=== PATIENT | female | born 1985 | race Caucasian/White ===

== ENCOUNTER → 2018-07-07 13:41 | Outpatient (CLI) | payer SELFPAY ==
[2018-07-07 17:18] LABS: Chlamydia Trachomatis by PCR Negative (Negative); Neisserai gonorrhoeae by PCR Negative (Negative); Probe Check PASS; Sample Adequacy Control PASS; Specimen Processing Control PASS
[2018-07-12 13:22] LABS: HPV Reflexed? NOT INDICATED
== END ==
PROVIDERS: Visit Provider Obstetrics & Gynecology
DX: Z12.4 Encounter for screening for malignant neoplasm of cervix (principal); Z11.3 Encounter for screening for infections with a predominantly sexual mode of transmission
CPT/HCPCS: 87491; 87591; 88175; G0145

== ENCOUNTER → 2018-07-21 10:09 | Outpatient (CLI) | payer SELFPAY ==
[2018-07-21 10:34] LABS: Absolute Lymphocyte Count 2.02 X10^3/ul (0.83-4.51); Absolute Neutrophil Count 8.7 X10^3/uL (2.0-7.7); Basophil# 0.01 X10^3/uL; Basophil% 0.1 % (0-1); Eosinophil# 0.12 X10^3/uL; Eosinophils% 1.1 % (0-5); Hematocrit 40.8 % (37-47); Hemoglobin 13.3 g/dl (12.0-15.0); Lymphocyte # 2.02 X10^3/ul (4.0); Lymphocyte % 17.9 % (19-41); Mean Corp Hgb Conc 32.6 g/gl (32-36); Mean Corpuscular Hgb 29.7 pg (27.0-32.0); Mean Corpuscular Volume 91.1 fL (81-99); Mean Platelet Vol. 10.1 fl (6.2-12.0); Monocyte# 0.38 X10^3/uL; Monocyte% 3.4 % (0-10); Neutrophil # 8.73 X10^3/uL (2.7-7.7); Neutrophil % 77.2 % (47-70); Platelet Count 270 K/mm3 (150-450); RBC Distribution Width CV 12.9 % (11.6-14.6); RBC Distribution Width SD 42.7 fl (35.1-43.9); Red Blood Count 4.48 M/mm3 (4.2-5.4); White Blood Count 11.3 K/mm3 (4.4-11.0)
[2018-07-21 10:36] LABS: POSITIVE COUNT NO; POSITIVE DIFFERENTIAL NO; POSITIVE MORPHOLOGY NO
[2018-07-21 10:48] LABS: Color, Urine Yellow (Yellow); Glucose, Dipstick Normal (Normal); Ketone-Dipstick 5 mg/dl (Negative); Leukocyte Esterase-Dipstick 25 /ul (Negative); Nitrite-Dipstick Negative (Negative); Occult Blood-Urine 10 /ul (Negative); Protein-Dipstick 30 mg/dl (Negative); Specific Gravity, Urine 1.025 (1.002-1.030); Urine Clarity Cloudy (Clear); Urine Urobilinogen 1 mg/dl (Normal)
[2018-07-21 10:49] LABS: Urine Bilirubin Dipstick 1 mg/dL (Negative)
[2018-07-21 10:55] LABS: COTININE Drug Screen Negative (<200 ng/mL)
[2018-07-21 11:07] LABS: Amphetamine Urine VISTA NEGATIVE (<1000 ng/mL); Barbiturate Urine VISTA NEGATIVE (< 200 ng/mL); Benzodiazepine Urine VISTA NEGATIVE (< 200 ng/mL); Cocaine Urine VISTA NEGATIVE (< 300 ng/mL); Ecstacy Urine VISTA NEGATIVE (< 500 ng/mL); Methadone Urine VISTA NEGATIVE (< 300 ng/mL); PCP Urine VISTA NEGATIVE (< 25 ng/mL); THC Urine VISTA NEGATIVE (< 50 ng/mL); Vista UDS pH Range 5
[2018-07-21 11:28] LABS: Thyroid Stim Hormone (TSH) 1.06 uIU/mL (0.358-3.74)
[2018-07-21 12:11] LABS: HIV - WCH Non-Reactive (Nonreactive); Rubella IgG 5.3 IU/mL
[2018-07-22 10:29] LABS: HEPATITIS B SURFACE AG Negative (Negative); Hep C Antibodies <0.1 s/co ratio (0.0-0.9)
[2018-07-23 05:27] LABS: Prenatal RPR NONREACTIVE (NONREACTIVE)
== END ==
PROVIDERS: Visit Provider Obstetrics & Gynecology
DX: Z34.81 Encounter for supervision of other normal pregnancy, first trimester (principal)
CPT/HCPCS: 36415; 80307; 81002; 84443; 85025; 86703; 86762; 86803; 87340

== ENCOUNTER → 2018-12-07 08:41 | Outpatient (CLI) | payer SELFPAY ==
[2018-12-07 10:46] LABS: Hematocrit 37.2 % (37-47); Hemoglobin 12.1 g/dl (12.0-15.0); Mean Corp Hgb Conc 32.5 g/gl (32-36); Mean Corpuscular Hgb 31.6 pg (27.0-32.0); Mean Corpuscular Volume 97.1 fL (81-99); Mean Platelet Vol. 10.1 fl (6.2-12.0); Platelet Count 255 K/mm3 (150-450); RBC Distribution Width CV 12.6 % (11.6-14.6); RBC Distribution Width SD 43.3 fl (35.1-43.9); Red Blood Count 3.83 M/mm3 (4.2-5.4); White Blood Count 12.9 K/mm3 (4.4-11.0)
[2018-12-07 10:48] LABS: Scan Indicated on CBC? Y/N NO
[2018-12-07 10:53] LABS: Glucose Challenge Gest 1H 50g 101 mg/dL (70-140)
== END ==
PROVIDERS: Visit Provider Obstetrics & Gynecology
DX: Z34.83 Encounter for supervision of other normal pregnancy, third trimester (principal)
CPT/HCPCS: 36415; 82950; 85027

== ENCOUNTER → 2019-02-01 12:05 | Outpatient (CLI) | payer SELFPAY | PROVIDERS: Visit Provider Obstetrics & Gynecology | DX: Z36.85 Encounter for antenatal screening for Streptococcus B (principal) | CPT/HCPCS: 87081 ==

== ENCOUNTER 2019-03-08 19:00 | Inpatient (IN) | payer SELFPAY ==
[2019-03-08] MEDS: Lactated Ringers 1,000 ML 50 ML IV (19:40)
[2019-03-08 19:57] LABS: Absolute Lymphocyte Count 2.12 X10^3/ul (0.83-4.51); Absolute Neutrophil Count 10.8 X10^3/uL (2.0-7.7); Basophil# 0.01 X10^3/uL; Basophil% 0.1 % (0-1); Eosinophil# 0.07 X10^3/uL; Eosinophils% 0.5 % (0-5); Hematocrit 35.2 % (37-47); Hemoglobin 11.8 g/dl (12.0-15.0); Lymphocyte # 2.12 X10^3/ul (4.0); Lymphocyte % 15.7 % (19-41); Mean Corp Hgb Conc 33.5 g/gl (32-36); Mean Corpuscular Hgb 30.5 pg (27.0-32.0); Mean Platelet Vol. 10.5 fl (6.2-12.0); Monocyte# 0.46 X10^3/uL; Monocyte% 3.4 % (0-10); Neutrophil # 10.82 X10^3/uL (2.7-7.7); Platelet Count 224 K/mm3 (150-450); RBC Distribution Width CV 13.2 % (11.6-14.6); Red Blood Count 3.87 M/mm3 (4.2-5.4); White Blood Count 13.5 K/mm3 (4.4-11.0)
[2019-03-08 19:59] LABS: POSITIVE COUNT NO; POSITIVE DIFFERENTIAL NO; POSITIVE MORPHOLOGY NO
--- NOTE | 2019-03-08 20:11 | PCM.HPOB.BLA ---
History and Physical Date of Admission: 03/08/19 OB HISTORY AND PHYSICAL EXAMINATION History of this : 33 yo female Ab0 with EDC 02/28/2019 by 8 weeks 2 days Ultrasound, presents to Labor and Delivery for 41 1/7 wk EGA postdates induction. care remarkable for - A positive GBS NEGATIVE. 1.) Wants MSAFP drawn, declines CF testing 2.) has two older children (early 20's) 3.) Rubella equivocal. Vaccinate pp Pertinent Past Medical History: None. Allergies: No Known Allergies Medications: During - Valtrex 500 mg tablet; Vitamin tablet; promethazine 25 mg tablet Review of Systems: Non-contributory PHYSICAL EXAMINATION General Appearence: 33 yo female in no acute distress Vital Signs: AF, VSS Heart: RRR without rubs or gallops Lungs: CTA x 2 Breasts: deferred Abdomen: gravid Pelvis: Cervix: CLOSED, anterior, soft unable to place de luna bulb Presentation: cephalic Station: Fetus: Size: AGA Movement: present Heart: 120-130s avg variability Accels Category I tracing UCs noted, irregular and not painful Impression /Plan: Intrauterine . Postdates induction of labor. Unfavorable cervix. Cytotec po and De Luna bulb planned. UNABLE TO PLACE DE LUNA BULB. Plan for cytotec PO overnight with last dose by 5 am. AROM, pitocin prn tomorrow. Admit for induction. Watch progress and tolerance of labor. See Progress Notes for Changes: Physician's Signature: Nikhil Yun Date: 03/08/192014
[2019-03-08 20:13] VITALS: BMI 41.3
[2019-03-08] MEDS: 0.9% Normal Saline 100 ML IV.SOLN. INTRA-UTER (20:30)
[2019-03-08] MEDS: Nalbuphine 10 MG/ML Ampul IV (23:55)
[2019-03-08] MEDS: 0.9% Saline Lock 10 ML Syringe IV (23:56)
[2019-03-09] VITALS (8 sets, daily range): BP systolic 105–138; BP diastolic 57–74; PULSE 102–114; RESP 12–18; TEMP 36.8–36.9; O2SAT 98–100
[2019-03-09] MEDS: Nalbuphine 10 MG/ML Ampul IV ×2 (03:11→06:34)
[2019-03-09] MEDS: 0.9% Saline Lock 10 ML Syringe IV ×2 (03:13→06:35)
--- NOTE | 2019-03-09 07:14 | PCM.PN.BLA ---
Progress Note LABOR PROGRESS NOTE. 41 2/7 wk postdates induction. Cytotec overnight Feeling more pain. S/P nubain dose times one which took the edge off. AVSS EFM: 120s with avg variability. Accels. UCx q 2-3 min CX: does not admit FT through. Lang bulb planned. VERY NARROW ARCH/PELVIS A/P: 41 2/7 wk induction of labor. Lang bulb planned. Pitocin to start 4 hr after last Cytotec dose. Watch progress. VERY NARROW pelvis. ? adequacy. Continue induction of labor for now.
--- NOTE | 2019-03-09 07:25 | PCM.PN.BLA ---
Progress Note LABOR PROGRESS NOTE Painful with attempted insertion of De Luna unable to insert de luna. Trial with speculum and trial with exam guided insertion. De Luna in correct place, bult inflated and bulb immediately noted in vagina. AROM in process of trial of de luna bulb insertion . Mod amt of clear fluid noted. A/P: 41 10/31 wk induction Cytotec with very unfavorable cervix. NARROW Pelvis. States her mother delivered x four. continue induction Pitocin to start. consider epidural. S/P Nubain one dose already.
--- NOTE | 2019-03-09 09:14 | PN.OBGYN_ITS ---
Subjective: Uncomfortable with contractions. Objective: Afeb VSS FHR tracing Cat 1. - Physical Exam General: Alert, Oriented x3, Cooperative Abdomen: Soft, Non Tender, Non-Distended, Gravid, Appropriate for Gestational Age Extremities: No edema Skin: No rashes Neurological: Neuro grossly intact Psych/Mental Status: Normal Affect Comment: ZINA /-3 Weight: 233 lb 0.458 oz Body Mass Index (BMI) 41.3 Intake and Output for Last 24 Hours 03/07/19 03/08/19 03/09/19 23:59 23:59 23:59 Intake Total 500 / 500 500 / 500 Output Total 500 / 500 300 / 300 Balance 0 / 0 200 / 200 Laboratory Tests Past 24 Hrs 03/08/19 03/08/19 19:40 19:40 WBC 13.5 H RBC 3.87 L Hgb 11.8 L Hct 35.2 L MCV 91.0 MCH 30.5 MCHC 33.5 RDW 13.2 RDW Differential 43.0 Plt Count 224 MPV 10.5 Immature Gran % (Auto) 0.300 Neut % (Auto) 80.0 H Lymph % (Auto) 15.7 L [place] % (Auto) 3.4 Eos % (Auto) 0.5 Baso % (Auto) 0.1 Absolute Neuts (auto) 10.8 H Absolute Lymphs (auto) 2.12 Total Counted Not Reportable Blood Type A POSITIVE Antibody Screen NEGATIVE Medical Necessity - Tobacco Use Smoking Status: Never smoker Assessment/Plan A 24 gambian de luna catheter was placed through the cervix into the cavity and the balloon filled with saline to 30cc. Plans to get epidural at this time. Will start pitocin then.
[2019-03-09] MEDS: Lactated Ringers 1,000 ML 50 ML IV ×3 (09:30→18:01)
[2019-03-09] MEDS: fentaNYL-bupivacaine (epidural) 100 ML BAG EPIDURAL ×3 (10:27→20:08)
[2019-03-09] MEDS: Ondansetron 4 MG/2 ML Vial IV ×2 (10:49→16:23)
[2019-03-09] MEDS: Oxytocin 30 units/NS 500 ml 30 UNITS/500 ML IV.SOLN IV (11:07)
--- NOTE | 2019-03-09 12:16 | PCM.PN.OB ---
Subjective: More comfortable with epidural in place Objective: Afeb VSS FHR tracing Cat 1 - Physical Exam General: Alert, Oriented x3, Cooperative, No apparent distress Cardiovascular: Regular rate, Regular Rhythm Abdomen: Soft, Non Tender, Non-Distended, Gravid, Appropriate for Gestational Age Extremities: No edema, No Calf Tenderness Skin: No rashes Neurological: Neuro grossly intact Psych/Mental Status: Normal Affect Comment: CE 4/50/-3 Weight: 233 lb 0.458 oz Body Mass Index (BMI) 41.3 Intake and Output for Last 24 Hours 03/07/19 03/08/19 03/09/19 23:59 23:59 23:59 Intake Total 500 / 500 2151 / 2151 Output Total 500 / 500 400 / 400 Balance 0 / 0 1751 / 1751 Laboratory Tests Past 24 Hrs 03/08/19 03/08/19 19:40 19:40 WBC 13.5 H RBC 3.87 L Hgb 11.8 L Hct 35.2 L MCV 91.0 MCH 30.5 MCHC 33.5 RDW 13.2 RDW Differential 43.0 Plt Count 224 MPV 10.5 Immature Gran % (Auto) 0.300 Neut % (Auto) 80.0 H Lymph % (Auto) 15.7 L [place] % (Auto) 3.4 Eos % (Auto) 0.5 Baso % (Auto) 0.1 Absolute Neuts (auto) 10.8 H Absolute Lymphs (auto) 2.12 Total Counted Not Reportable Blood Type A POSITIVE Antibody Screen NEGATIVE Medical Necessity - Tobacco Use Smoking Status: Never smoker Assessment/Plan Lang balloon spontaneously fell out. Cervix changed. Internal monitors placed. Deandre oneil.
[2019-03-09] MEDS: CHLORHEXIDINE GLUC 2% CLOTH 1 EACH TOWELETTE TOPICAL (20:20)
--- NOTE | 2019-03-09 20:30 | PCM.PN.OB ---
Subjective: Comfortable with epidural Objective: Afeb VSS. FHR tracing overall Cat 1 - Physical Exam General: Alert, Oriented x3, Cooperative, No apparent distress Abdomen: Soft, Non Tender, Non-Distended, Gravid, Appropriate for Gestational Age Extremities: No edema Skin: No rashes Neurological: Neuro grossly intact Psych/Mental Status: Normal Affect Comment: CE /-2 Weight: 233 lb 0.458 oz Body Mass Index (BMI) 41.3 Intake and Output for Last 24 Hours 03/07/19 03/08/19 03/09/19 23:59 23:59 23:59 Intake Total 500 / 500 4315 / 4315 Output Total 500 / 500 1750 / 1750 Balance 0 / 0 2565 / 2565 Laboratory Tests Past 24 Hrs 03/08/19 19:40 Blood Type A POSITIVE Antibody Screen NEGATIVE Medical Necessity - Tobacco Use Smoking Status: Never smoker Assessment/Plan Despite adequate contractions over at least the last 8 hours there has been no significant cervical change. Given lack of progress decision is made to deliver by section. Indications for delivery, procedures, risks were discussed. All questions answered.
--- NOTE | 2019-03-09 20:33 | PN.OBGYN_ITS ---
Subjective: Comfortable with epidural Objective: Afeb VSS. FHR tracing overall Cat 1 - Physical Exam General: Alert, Oriented x3, Cooperative, No apparent distress Abdomen: Soft, Non Tender, Non-Distended, Gravid, Appropriate for Gestational Age Extremities: No edema Skin: No rashes Neurological: Neuro grossly intact Psych/Mental Status: Normal Affect Comment: CE /-2 Weight: 233 lb 0.458 oz Body Mass Index (BMI) 41.3 Intake and Output for Last 24 Hours 03/07/19 03/08/19 03/09/19 23:59 23:59 23:59 Intake Total 500 / 500 4315 / 4315 Output Total 500 / 500 1750 / 1750 Balance 0 / 0 2565 / 2565 Laboratory Tests Past 24 Hrs 03/08/19 19:40 Blood Type A POSITIVE Antibody Screen NEGATIVE Medical Necessity - Tobacco Use Smoking Status: Never smoker Assessment/Plan Despite adequate contractions over at least the last 8 hours there has been no s ignificant cervical change. Given lack of progress decision is made to deliver by section. Indications for delivery, procedures, risks were discussed. All questions answered.
--- NOTE | 2019-03-09 20:40 | DCINST_ITS ---
Discharge Diet: No Restrictions Discharge Activity: Return to Normal Activity, May Not Drive, May not drive while taking narcotic pain medications., May Shower Return to work on:: 05/09/19 May shower in (days): 0 May resume sexual activity in: 6 weeks Call your doctor if your incision/area has: Sudden Increased Bleeding, Increased Pain/ Swelling, Increased Redness, Foul Smelling Discharge, Swelling at the incision site Call your doctor if you observe: Fever of 101 or Higher, Inability to urinate, Inability to have a bowel movement, Using more than one pad per hour, Shortness of breath, Chest pain, Calf discomfort, Uncontrolled pain Remove Dressing in (days):: 4 Cleanse incision/area with: Soap & Water Additional Instructions: If you experience any of the following, contact your healthcare provider. * Bleeding that soaks a pad every hour for 2 hours * Fever 100.4 or higher * Unrelieved incision or abdominal pain * Swelling, redness, discharge or bleeding from your incision or episiotomy site * Your incision begins to separate * Problems urinating (including inability to urinate or burning while urina ting). * Visual changes * Severe headache * Flu-like symptoms * Pain or redness in one of both of your breasts * Pain, warmth, tenderness or swelling in your legs, especially the calf area * Frequent nausea and vomiting * Symptoms of depression or anxiety If you experience any of the following, call 911 or go to the nearest Emergency Room. * Chest pain * Problems breathing * Seizure activity * Partial or complete paralysis of a body part, slurred speech, weakness or drooping of the face, or a sudden inability to walk or hold your balance Allergies/Adverse Reactions: Allergies No Known Allergies Allergy (Verified 03/08/19 20:11) Medications to take at Discharge Docusate Sodium [Colace] 100 mg PO DAILY PRN PRN 03/08/19 105/Iron/Folic AC/Dha [Prena1 True Combo Pack] 100 mg PO DAILY 03/08/19 Ibuprofen [Motrin] 600 mg PO Q6H PRN PRN #30 tab 03/09/19 Oxycodone [Oxyir] 5 - 10 mg PO Q4H PRN PRN 7 Days #30 tab 03/09/19 The following prescriptions were given: Oxycodone [Oxyir] 5 - 10 mg PO Q4H PRN PRN 7 Days #30 tab PRN Reason: Mod-Severe Pain (-07/14) Ibuprofen [Motrin] 600 mg PO Q6H PRN PRN #30 tab PRN Reason: pain or cramping Follow-Up: Call to make an appointment with your doctor for an incision check in 1-2 weeks. You will also need a 6 week post- follow up appointment. Test results from this visit will be discussed in further detail at your follow- up appointment, if applicable. Please Follow Up With: Norman Bhatt MD When: one week Primary Care Physician: Care Physician,No Primary [Primary Care Provider] - Proposed Discharge Date: 03/12/19
--- NOTE | 2019-03-09 20:40 | PCM.OPRPT ---
Report of Operation Date of Procedure: 03/09/19 Pre-Operative Diagnosis: Failure to progress in labor Post-Operative Diagnosis: Same Surgery/Procedure Performed:: Primary Low Transverse Section Description of Surgical Findings:: Normal appearing uterus, ovaries, and fallopian tubes. Baby in vertex presentation weighing 7lb5oz. Apgars 8/9. manager of broadcast content: Jeronimo Vidal Type of Anesthesia:: Epidural Anesthesiologist: Silvestre Dahl Special Medications: none Specimen's removed: none Drains: de luna Estimated Blood Loss (mL): 600cc Fluids Replaced: 800cc LR Description of Procedure: Indications for delivery and risks of the procedure were discussed with Mirian prior to the surgery. She was taken to the OR with IV running. She was then dosed through the epidural for surgical anesthesia. She was then prepped and draped in the supine position with a leftward tilt. Once anesthesia was deemed adequate a Pfannensteil skin incision was made with the scalpel approximately 2 cm above the symphysis pubis. The underlying subcutaneous tissue was dissected down to the level of the fascia with sharp and blunt dissection. The fascia was then incised laterally in the midline and this incision was extended bilaterally with the Hall scissors. The upper portion of the fascial defect was then grasped with two Kp clamps, elevated and the underlying rectus muscles were dissected off the fascia. In a similar fashion the rectus muscles were dissected off the lower portion of the fascial defect. The rectus muscles were then and the peritoneum entered. The peritoneal defect was enlarged using blunt retraction. A bladder blade was then placed. A bladder flap was then created and the bladder blade replaced. The lower uterine incision was then incised in a transverse fashion. Once the cavity was entered the uterine defect was enlarged using blunt lateral and superior traction. The baby's head was then delivered atraumatically followed by the body. Delayed cord clamping was employed. The cord was then clamped and cut. The baby was handed off to the waiting nurse for evaluation. The placenta was then delivered manually and the uterus exteriorized then cleared of all clot and membranes. The uterine incision was closed in two layers with #1 Vicryl suture. The posterior cul de sac and gutters were cleared of all clot and membranes. The uterus was returned to the abdomen. The peritoneum was closed with 2-0 Vicryl. The rectus muscles were reapproximated with interrupted sutures of 0-Vicryl. The fascia was closed with a running stitch of #1 Stratofix. The subcutaneous tissue was closed with 2-0 Vicryl. The skin was closed with a subcuticular stitch of 4-0 Monocryl. Sponge, lap, needle, and instrument counts were correct. She was taken to the recovery room in stable condition. Grafts/Implants Used: none - Complications none - Admit VTE Documentation VTE Present on Admission: No VTE Mechan Device Prophylaxis: SCD's VTE Pharm Prophylaxis ordered?: No Delivery Classification: REJI Final CHANELLE: 02/28/19 Final CHANELLE Source: US <20 weeks Gestational age: 41 Weeks and 2 Days Indications for : Failure to Progress Description of Procedure: see operative note Amniotic Membrane Rupture Type: Artificial Amniotic Fluid Description: Clear Placenta Disposition: [facility] Drain: De Luna to straight drain Cord Entanglement: None Nuchal Cord Compression: Without compression Cord Vessel Description: 3 Vessels Esitmated Blood Loss (ml): 600cc Infant Gender: Male (1 minute): 8 (5 minute): 9 Delayed cord clamping: Yes Pre-op Antibiotic Given: Ancef 2 grams IV x1 Pt instructed on risks of surgery: Bleeding, Anesthesia Risks, Infection, Need for Future C-Sections, Injury to surrounding structure(s) including bowel and bladder Complications: None - Admit VTE Documentation VTE Present on Admission: No VTE Mechan Device Prophylaxis: SCD's VTE Pharm Prophylaxis ordered?: No
[2019-03-09] MEDS: Lactated Ringers 1,000 ML 999 ML IV (20:45)
[2019-03-09] MEDS: Sodium Citrate/Citric Acid 30 ML UDC PO (20:46)
[2019-03-09] MEDS: Cefazolin 2 GM in 0.9% Normal Saline 100 ML IV (20:49)
[2019-03-10] VITALS (14 sets, daily range): BP systolic 96–124; BP diastolic 55–76; PULSE 68–111; RESP 16–18; TEMP 35.9–36.9; O2SAT 96–99
[2019-03-10] MEDS: Ketorolac 30 MG/ML Syringe IV ×4 (03:09→20:49)
[2019-03-10] MEDS: Cefazolin 1 GM/50 ML BAG IV ×2 (04:57→13:37)
[2019-03-10] MEDS: Lactated Ringers 1,000 ML 100 ML IV (04:57)
[2019-03-10 05:33] LABS: Hematocrit 31.7 % (37-47); Hemoglobin 10.7 g/dl (12.0-15.0); Mean Corp Hgb Conc 33.8 g/gl (32-36); Mean Corpuscular Hgb 31.1 pg (27.0-32.0); Mean Corpuscular Volume 92.2 fL (81-99); Mean Platelet Vol. 11.1 fl (6.2-12.0); Platelet Count 168 K/mm3 (150-450); RBC Distribution Width CV 12.6 % (11.6-14.6); RBC Distribution Width SD 40.3 fl (35.1-43.9); Red Blood Count 3.44 M/mm3 (4.2-5.4); White Blood Count 18.2 K/mm3 (4.4-11.0)
[2019-03-10 05:42] LABS: Scan Indicated on CBC? Y/N NO
[2019-03-10] MEDS: Acetaminophen 500 MG Tablet 1000 MG PO ×2 (07:19→15:27)
--- NOTE | 2019-03-10 08:00 | PCM.PN.OB ---
Subjective: Some soreness this morning but overall doing well. Breast feeding. Objective: Afeb VSS Hgb appropriate. Urine output adequate. - Physical Exam General: Alert, Oriented x3, Cooperative, No apparent distress Lungs: Clear to auscultation, Normal air movement Cardiovascular: Regular rate, Regular Rhythm Abdomen: Soft, Non Tender, Non-Distended, - - Incision dressing dry Extremities: Edema - trace Skin: No rashes Neurological: Neuro grossly intact Psych/Mental Status: Normal Affect Comment: Lochia normal Vital Signs Temp Pulse Resp BP Pulse Ox 96.6 F L 89 16 96/56 L 98 03/10/19 06:29 03/10/19 06:29 03/10/19 06:29 03/10/19 06:29 03/10/19 06:29 Oxygen Delivery Method Room Air Weight: 233 lb 0.458 oz Body Mass Index (BMI) 41.3 Intake and Output for Last 24 Hours 03/08/19 03/09/19 03/10/19 23:59 23:59 23:59 Intake Total 500 / 500 4315 / 4315 898 / 898 Output Total 500 / 500 1750 / 1750 900 / 900 Balance 0 / 0 2565 / 2565 -2 / -2 Laboratory Tests Past 24 Hrs 03/10/19 05:00 WBC 18.2 H RBC 3.44 L Hgb 10.7 L Hct 31.7 L MCV 92.2 MCH 31.1 MCHC 33.8 RDW 12.6 RDW Differential 40.3 Plt Count 168 MPV 11.1 Medical Necessity - Tobacco Use Smoking Status: Never smoker Assessment/Plan Doing well on POD#1. Continue de luna for 24 hours post op due Duramorph dosing. Otherwise routine post op care.
[2019-03-10] MEDS: 0.9% Saline Lock 10 ML Syringe IV ×3 (09:28→20:49)
[2019-03-10] MEDS: Senna/Docusate Sodium 1 Tablet PO (13:37)
[2019-03-10] MEDS: Lactated Ringers 1,000 ML 150 ML IV (15:28)
[2019-03-11 00:08] VITALS: PULSE 84; RESP 18; O2SAT 96
[2019-03-11] MEDS: oxyCODONE 5 MG Tablet PO ×4 (01:21→19:27)
[2019-03-11 01:23] VITALS: BP 136/77; PULSE 80; RESP 18; TEMP 36.4; O2SAT 100
[2019-03-11] MEDS: 0.9% Saline Lock 10 ML Syringe IV ×4 (02:39→21:12)
[2019-03-11] MEDS: Ketorolac 30 MG/ML Syringe IV ×4 (02:39→21:13)
--- NOTE | 2019-03-11 07:22 | PCM.PN.OB ---
Subjective: POD#2 Primary C/S 41 1/2 wk Sore. Plans to stay. - Physical Exam General: Alert, Oriented x3, Cooperative, No apparent distress HEENT: Atraumatic Neck: Supple Abdomen: Soft - Fundus firm, tender c/w postop status. 1-2 cm inferior to umbilicus Skin: Incision - Mepilex CDI. No shadow drainage noted. Neurological: Cranial nerves II-XII grossly intact Psych/Mental Status: Normal Affect Vital Signs Temp Pulse Resp BP Pulse Ox 97.6 F L 80 18 136/77 H 100 03/11/19 01:23 03/11/19 01:23 03/11/19 01:23 03/11/19 01:23 03/11/19 01:23 Oxygen Delivery Method Room Air Weight: 105.7 kg Body Mass Index (BMI) 41.3 Intake and Output for Last 24 Hours //19 /03/2303/11/19 23:59 23:59 23:59 Intake Total 4315 / 4315 2783 / 2783 Output Total 1750 / 1750 2600 / 2600 400 / 400 Balance 2565 / 2565 183 / 183 -400 / -400 Medical Necessity - Tobacco Use Smoking Status: Never smoker Assessment/Plan POD#1 primary C/S Stable postop. Continue routine care. Encouraged prn pain med, abdominal binder use
[2019-03-11 08:32] VITALS: BP 110/74; PULSE 101; RESP 18; TEMP 36.3; O2SAT 97
[2019-03-11] MEDS: Acetaminophen 500 MG Tablet 1000 MG PO ×2 (13:55→22:07)
[2019-03-11 13:56] VITALS: BP 115/69; PULSE 97; RESP 18; TEMP 36.2; O2SAT 98
[2019-03-11 19:15] VITALS: BP 107/62; PULSE 87; RESP 17; TEMP 36.6
[2019-03-12 01:09] VITALS: BP 115/58; PULSE 97; RESP 16; TEMP 36.2; O2SAT 97
[2019-03-12] MEDS: Ibuprofen 600 MG Tablet PO ×2 (03:33→09:48)
--- NOTE | 2019-03-12 07:48 | PCM.PN.OB ---
Subjective: POD#3 Primary C/S Induction at 41 1/7 wk FTP doing well. States milk is coming in as breasts firm. continues to nurse well. Sore . Ready to go home today. Asking about incision care. Objective: Sitting up in chair - Physical Exam General: Alert, Oriented x3, Cooperative, No apparent distress HEENT: Atraumatic Neck: Supple Abdomen: Soft - fundus firm, tender c/w postop status at approx umbilicus Skin: Incision - Mepilex dressing CDI. Neurological: Cranial nerves II-XII grossly intact Psych/Mental Status: Normal Affect Vital Signs Temp Pulse Resp BP Pulse Ox 97.2 F L 97 16 115/58 L 97 03/12/19 01:09 03/12/19 01:09 03/12/19 01:03/12/19 01:03/12/19 01:09 Oxygen Delivery Method Room Air Weight: 105.7 kg Body Mass Index (BMI) 41.3 Intake and Output for Last 24 Hours //23 03//03/12/19 23:59 23:59 23:59 Intake Total 2783 / 2783 Output Total 2600 / 2600 400 / 400 Balance 183 / 183 -400 / -400 Medical Necessity - Tobacco Use Smoking Status: Never smoker Assessment/Plan POD#3 primary C/S Stable postop. Dischg home today. RTO in 1-2 wk for postop incision check. Reviewed wound care, and when to remove dressing.
--- NOTE | 2019-03-12 07:51 | PCM.DC.SUM ---
Discharge Date and Diagnosis Date of Admission: 03/08/19 Hospital Course and Treatment Operations: - - primary C section FTP Summary of Care Provided: The patient is a 33 year old female at 41 1/7 wk presents for postdates induction of labor with unfavorable cervix. Cytotec, de luna and AROM. Pitocin induction with FTP for more than 6 hrs Primary C/S performed on 03/09/19. Deliivered [place] viable male 7# 5 oz. Ap 8/9 Procedure uncomplicated Normal appearing uterus, fallopian tubes and ovaries noted at time of C/S. Postoperative course uncomplicated. Preoperative Hgb 11.8 g/dl Postoperative Hgb 10.7 g/dl Exam benign. Incision CDI and healing well. AVSS Elects dischg home on POD#3. - Physical Exam Vital Signs Temp Pulse Resp BP Pulse Ox 97.2 F L 97 16 115/58 L 97 03/12/19 01:09 03/12/19 01:09 03/12/19 01:09 03/12/19 01:09 03/12/19 01:09 Oxygen Delivery Method Room Air Weight: 105.7 kg Body Mass Index (BMI) 41.3 Intake and Output for Last 24 Hours 03/10/19 03/11/19 03/12/19 23:59 23:59 23:59 Intake Total 2783 / 2783 Output Total 2600 / 2600 400 / 400 Balance 183 / 183 -400 / -400 Discharge Diet: No Restrictions Discharge Activity: Return to Normal Activity, May Not Drive, May not drive while taking narcotic pain medications., May Shower Return to work on:: 05/09/19 May shower in (days): 0 May resume sexual activity in: 6 weeks Call your doctor if your incision/area has: Sudden Increased Bleeding, Increased Pain/ Swelling, Increased Redness, Foul Smelling Discharge, Swelling at the incision site Call your doctor if you observe: Fever of 101 or Higher, Inability to urinate, Inability to have a bowel movement, Using more than one pad per hour, Shortness of breath, Chest pain, Calf discomfort, Uncontrolled pain Remove Dressing in (days):: 4 Cleanse incision/area with: Soap & Water Home Medications: Medications to take at Discharge Docusate Sodium [Colace] 100 mg PO DAILY PRN PRN 03/08/19 105/Iron/Folic AC/Dha [Prena1 True Combo Pack] 100 mg PO DAILY 03/08/19 Ibuprofen [Motrin] 600 mg PO Q6H PRN PRN #30 tab 03/09/19 Oxycodone [Oxyir] 5 - 10 mg PO Q4H PRN PRN 7 Days #30 tab 03/09/19 Following Prescrptions Were Given to Patient: Oxycodone [Oxyir] 5 - 10 mg PO Q4H PRN PRN 7 Days #30 tab PRN Reason: Mod-Severe Pain (-07/14) Ibuprofen [Motrin] 600 mg PO Q6H PRN PRN #30 tab PRN Reason: pain or cramping Primary Care Physician: Care Physician,No Primary [Primary Care Provider] - Please Follow Up With: Norman Bhatt MD When: one week Medical Necessity - Tobacco Use Smoking Status: Never smoker Meaningful Use Info Meaningful Use Diagnoses (Choose all that apply): None applicable
[2019-03-12] MEDS: oxyCODONE 5 MG Tablet PO (08:23)
[2019-03-12] MEDS: Senna/Docusate Sodium 1 Tablet PO (08:23)
[2019-03-12 08:45] VITALS: BP 127/80; PULSE 93; RESP 16; TEMP 36.4
--- NOTE | 2019-03-12 09:53 | NURSING ---
0950 States the Oxyxir helped the pain a lot but rates current pain at 5. Up and moving around in room without difficulty. States she wants to go home and feels able to care for herself and her baby. FOB in room and participates with infant care.
[2019-03-12 10:35] VITALS: BP 127/80; PULSE 93; RESP 16; TEMP 36.4
--- NOTE | 2019-03-12 11:25 | NURSING ---
1035 Discharged to home via wheelchair to car with in car seat. Tolerated well.
== END 2019-03-12 10:35 | disposition home or self-care (01) | DRG 788 ==
PROVIDERS: Admitting Provider Obstetrics & Gynecology; Referring Provider Obstetrics & Gynecology; Visit Provider Obstetrics & Gynecology
DX: O48.0 Post-term pregnancy (principal); O62.2 Other uterine inertia; Z3A.41 41 weeks gestation of pregnancy; Z37.0 Single live birth
CPT/HCPCS: 59025; 59050; 85025; 85027; 86850; 86900; 99218; J7120; A4216; G0378; J2405

== ENCOUNTER → 2020-12-18 14:30 | Outpatient (CLI) | payer OTHER, SELFPAY ==
[2020-12-18 14:21] VITALS: BMI 42.5
[2020-12-21 21:05] LABS: HPV APTIMA, High Risk Negative (Negative)
== END ==
LOC: LABSPEC 16:07
PROVIDERS: Referring Provider Nurse Practitioner Women's Health; Visit Provider Nurse Practitioner Women's Health
DX: Z12.4 Encounter for screening for malignant neoplasm of cervix (principal)
CPT/HCPCS: 87624; 88175; G0145

== ENCOUNTER → 2023-10-28 | Outpatient (CLI) | payer OTHER, SELFPAY ==
--- OUTSIDE RECORDS SUMMARY | 2023-10-28 08:26 | XMS RPT_ITS | CCD ---
Author Name Unknown Address [facility] [address] [place] [address] Organization [facility] Care Team Providers Care Pad Machine Feeder Name Role Phone Unavailable Primary Care Provider Unavailabl e Medications Current Medications Medication Drug Class(es) Dates Sig (Normalized) Sig (Original) 21 day ethinyl estradiol 0.626174 mg/hr / etonogestrel 0.005 mg/hr vaginal system (2 sources) Progestin, Estrogen Start: 10-12-2015 End: 07-27-2023 Etonogestrel-Ethinyl Estradiol (NUVARING) 0.12-0.015 mg/24 hr vaginal ring Indications: contraception Insert vaginally and leave in place for 3 consecutive weeks, then remove for 1 week. Indications: CONTRACEPTION 3 Each 3 10/12/2015 07/27/2023 Discontinued Problems Active Problems Problem Classification Problem Date Documented Date Episodic/Chronic Immunizations and screening for infectious disease (1 source) Exposure to streptococcal pharyngitis; Translations: [Contact with and (suspected) exposure to other bacterial communicable diseases] 07-27-2023 Episodic Other endocrine disorders (2 sources) Polycystic ovary syndrome; Translations: [Polycystic ovarian syndrome] Onset: 07-21-2012 07-21-2012 Chronic Other nutritional; endocrine; and metabolic disorders (2 sources) Obesity; Translations: [Obesity, unspecified] Onset: 10-30-2011 10-30-2011 Chronic Other upper respiratory infections (3 sources) Pharyngitis; Translations: [Acute pharyngitis, unspecified] Episodic Past or Other Problems Problem Classification Problem Date Documented Da te Episodic/Chronic Contraceptive and procreative management (2 sources) Patient encounter status; Translations: [Encounter for contraceptive management, unspecified] Onset: 2 10-30-2011 Episodic Diabetes mellitus without complication (2 sources) Impaired glucose tolerance; Translations: [Impaired glucose tolerance (oral)] Onset: 2 07-21-2012 Episodic Gastrointestinal hemorrhage (2 sources) Gastrointestinal hemorrhage; Translations: [Hemorrhage of anus and rectum] Onset: 3 09-15-2013 Episodic Residual codes; unclassified (2 sources) Family history of diabetes mellitus; Translations: [Family history of diabetes mellitus] Onset: 2 10-30-2011 Episodic Results Test Name Value Interpretation Reference Range Facil ity Vital Signs Date Time Vital Sign Value Performing Clinician Gloria dalton 07-27-2023 08:15-0400 Body temperature 97.3 [degF] Mike Serrano MD Work Phone: [facility] 07-27-2023 08:15-0400 Body weight 72.76 kg Mike Serrano MD Work Phone: [facility] 07-27-2023 08:15-0400 Diastolic blood pressure 70 mm[Hg] Mike Serrano MD Work Phone: [facility] 07-27-2023 08:15-0400 Heart rate 70 /min Mike Serrano MD Work Phone: [facility] 07-27-2023 08:15-0400 Respiratory rate 21 /min Mike Serrano MD Work Phone: [facility] 07-27-2023 08:15-0400 SaO2% (BldA) [Mass fraction] 99 % Mike Serrano MD Work Phone: [facility] 07-27-2023 08:15-0400 Systolic blood pressure 98 mm[Hg] Mike Serrano MD Work Phone: [facility] 08-14-2022 08:40-0500 Body temperature 97.39 [degF] Jazzy Dao IT CONSULTING MANAGER.APPLIED MARINE PHYSICS PROFESSOR Work Phone: [facility] 08-14-2022 08:40-0500 Body weight 110.68 kg Jazzy Dao IT CONSULTING MANAGER.APPLIED MARINE PHYSICS PROFESSOR Work Phone: [facility] 08-14-2022 08:40-0500 Diastolic blood pressure 76 mm[Hg] Jazzy Dao IT CONSULTING MANAGER.APPLIED MARINE PHYSICS PROFESSOR Work Phone: [facility] 08-14-2022 08:40-0500 Heart rate 101 /min Jazzy Dao IT CONSULTING MANAGER.APPLIED MARINE PHYSICS PROFESSOR Work Phone: [facility] 08-14-2022 08:40-0500 Respiratory rate 17 /min Jazzy Dao IT CONSULTING MANAGER.APPLIED MARINE PHYSICS PROFESSOR Work Phone: [facility] 08-14-2022 08:40-0500 SaO2% (BldA) [Mass fraction] 98 % Jazzy Dao IT CONSULTING MANAGER.APPLIED MARINE PHYSICS PROFESSOR Work Phone: [facility] 08-14-2022 08:40-0500 Systolic blood pressure 130 mm[Hg] Jazzy Dao IT CONSULTING MANAGER.APPLIED MARINE PHYSICS PROFESSOR Work Phone: [facility] Encounters Encounter Date Encounter Type Care Provider Facility Start: 07-27-2023 End: 07-27-2023 ambulatory Facility:[facility] Start: 07-27-2023 End: 07-27-2023 Patient encounter procedure Mike Serrano MD Work Phone: [facility] Procedures Date Procedure Procedure Detail Performing Clinician Start: 07-27-2023 STREP A MOLECULAR (POC) Mike Serrano MD Work Phone: Start: 08-14-2022 STREP A MOLECULAR (POC) Jazzy Dao APRN.APPLIED MARINE PHYSICS PROFESSOR Work Phone: Plan of Treatment Date Care Activity Detail Author Start: 06-05-2023 Influenza vaccination Influenza Vaccine (#1) [facility] Start: 10-05-2022 Depression Assessment Depression Assessment [facility] Start: 08-14-2022 End: 08-28-2022 Influenza virus A and B RNA and SARS-CoV-2 (COVID-19) N gene panel - Respiratory specimen by WONG with probe detection COVID WITH FLUA+B, ROUTINE Microbiology Routine Pharyngitis, unspecified etiology URI, acute Expected: 08/14/2022, Expires: 08/28/2022 [facility] Work Phone: Payers Date Payer Category Payer Unknown HOSPITAL/MEDICAL GENERIC MEDICAL GENERIC [id number] 2017-Present [phone] [address] [address] [place] [address] Rachidty [id number] 2017 Unknown [id number] Social History Date Type Detail Facility Start: [facility]-30-[facility] Work Phone: Start: 10-30-2011 Tobacco use and exposure Smokeless tobacco non-user [facility] Work Phone: Start: 08-14-2022 End: 07-27-2023 Alcohol intake Current non-drinker of alcohol (finding) [facility] Start: 1985 Sex Assigned At Not on file [facility] Start: 08-04-2022 End: 08-14-2022 Exposure to SARS-CoV-2 (event) Not sure [facility] Work Phone: Start: 09-10-2020 End: 07-27-2023 History of Social function [facility] Start: 09-10-2020 End: 07-27-2023 Tobacco use panel [facility] National Score (1-100), lower number is lower risk Not on file [facility] Progress note 07-27-2023 Note Date & Type Note Facility 07-27-2023 Note HNO ID: [id number] Author: Mike Serrano MD Service: ? Author Type: Physician Type: Progress Notes Filed: 07/27/2023 8:29 AM Note Text: Patient presents with: Sore Throat: Cough, fever, GUZMÁN, body aches x 2 days HPI: Feeling sick for 3 days. Her son had strep throat last week. Positive symptoms: Cough, Sore throat, Fever, Body Aches, Malaise, Headache, Post nasal drainage, Negative symptoms: Rhinorrhea, Vomiting, Diarrhea, MEDICATIONS: No current outpatient medications on file. No current facility-administered medications for this visit. ALLERGIES: ALLERGIES No Known Allergies VITALS: BP 98/70 Pulse 70 Temp 36.3 ?C (97.3 ?F) Resp 21 Wt 72.8 kg (160 lb 6.4 oz) LMP 07/18/2022 SpO2 99% BMI 28.41 kg/m? PHYSICAL EXAM: GEN: mildly ill appearing HEENT: PERRL, EOMI, conjunctiva clear Ears: canals clear. TMs without erythema, bulge, or effusion Sinuses: non-tender frontal sinus, non-tender maxillary sinuses Throat: moist mucous membranes, mild erythema, no exudate Neck: supple, no thyromegaly, no lymphadenopathy, hoarse voice HEART: regular rate and rhythm, no murmurs LUNGS: clear to auscultation, no wheezes or crackles, no increased WOB ASSESSMENT/PLAN: 1. Sore throat - ICD9: 462, ICD10: J02.9 (primary diagnosis) 2. Exposure to strep throat - ICD9: V01.89, ICD10: Z20.818 - STREP A MOLECULAR (POC) - negative. - suspect viral URI, differential includes COVID-19 (she will consider going home test). - Discussed supportive care treatment with rest, cold medicine, and analgesia. Mike Serrano MD [facility] History of Present illness Narrative 07-27-2023 Mike Serrano MD - 07/27/2023 8:17 AM EDT Note Date & Type Note Facility 07-27-2023 History of Presen t illness Narrative Patient presents with: Sore Throat: Cough, fever, GUZMÁN, body aches x 2 days HPI: Feeling sick for 3 days. Her son had strep throat last week. Positive symptoms: Cough, Sore throat, Fever, Body Aches, Malaise, Headache, Post nasal drainage, Negative symptoms: Rhinorrhea, Vomiting, Diarrhea, MEDICATIONS: No current outpatient medications on file. No current facility-administered medications for this visit. ALLERGIES: ALLERGIES No Known Allergies VITALS: BP 98/70 Pulse 70 Temp 36.3 C (97.3 F) Resp 21 Wt 72.8 kg (160 lb 6.4 oz) LMP 07/18/2022 SpO2 99% BMI 28.41 kg/m PHYSICAL EXAM: GEN: mildly ill appearing HEENT: PERRL, EOMI, conjunctiva clear Ears: canals clear. TMs without erythema, bulge, or effusion Sinuses: non-tender frontal sinus, non-tender maxillary sinuses Throat: moist mucous membranes, mild erythema, no exudate Neck: supple, no thyromegaly, no lymphadenopathy, hoarse voice HEART: regular rate and rhythm, no murmurs LUNGS: clear to auscultation, no wheezes or crackles, no increased WOB ASSESSMENT/PLAN: 1. Sore throat - ICD9: 462, ICD10: J02.9 (primary diagnosis) 2. Exposure to strep throat - ICD9: V01.89, ICD10: Z20.818 - STREP A MOLECULAR (POC) - negative. - suspect viral URI, differential includes COVID-19 (she will consider going home test). - Discussed supportive care treatment with rest, cold medicine, and analgesia. Mike Serrano MD documented in this encounter [facility] Influenza virus A and B RNA and SARS-CoV-2 (COVID-19) N gene panel WONG+probe (Resp) 08-14-2022 Note Date & Type Note Facility 08-14-2022 Influenza virus A and B RNA and SARS-CoV-2 (COVID-19) N gene panel WONG+probe (Resp) COVID 19 RESULT: SARS-CoV-2 (Agent of COVID-19) Not Detected by RT-PCR or equivalent method. quynh [id number] (THOMAS)_EUA This test was developed and its performance characteristics determined by [facility]'s [facility] [place]. This test has been authorized by FDA under an Emergency Use Authorization (EUA). This test has been validated in accordance with the FDA's Guidance Document Policy for Diagnostics Testing in Laboratories Certified to Perform High Complexity Testing under CLIA prior to Emergency use Authorization for Coronavirus Disease 2019 during the Public Health Emergency issued on December 03, 2019. Test performed by [facility], [facility] [place], [address] [place] [address]. INFLUENZA A PCR: Negative for Influenza A by RT-PCR INFLUENZA B PCR: Negative for Influenza B by RT-PCR [facility] Progress note 08-14-2022 Note Date & Type Note Facility 08-14-2022 Note HNO ID: [id number] Author: Jazzy Dao APRN.APPLIED MARINE PHYSICS PROFESSOR Service: ? Author Type: Nurse Practitioner Type: Progress Notes Filed: 08/14/2022 9:24 AM Note Text: This note was created using NoteWriter. Subjective Mirian Rebolledo is a 36 year old female. 36 year old female with PMH PCOS presents for illness. Acute onset 4 days ago +fever +chills +sore throat +ear pain (bilateral, left greater than right) +body aches +fatigue Denies cough Denies SOB or dyspnea. Denies N/V/D Home COVID test negative. Endorses family members have recently been ill. The history is provided by the patient. No computer language coder was used. URI There is no chest tightness, cough, difficulty breathing, frequent throat clearing, hemoptysis, hoarse voice, shortness of breath, sputum production or wheezing. This is a new problem. The current episode started in the past 7 days. The problem occurs constantly. The problem has been unchanged. Associated symptoms include ear pain, a fever, headaches, malaise/fatigue, myalgias, nasal congestion, rhinorrhea and a sore throat. Pertinent negatives include no appetite change, chest pain, dyspnea on exertion, ear congestion, heartburn, orthopnea, PND, postnasal drip, sneezing, sweats, trouble swallowing or weight loss. Her symptoms are aggravated by nothing. Her symptoms are alleviated by nothing. She reports no improvement on treatment. There are no known risk factors for lung disease. There is no history of asthma, bronchiectasis, bronchitis, COPD, emphysema or pneumonia. PAST MEDICAL HISTORY Diagnosis Date Oligomenorrhea 10/30/2011 PCOS (polycystic ovarian syndrome) 07/21/2012 PAST SURGICAL HISTORY Procedure Laterality Date APPENDECTOMY ALLERGIES Patient has no known allergies. MEDICATIONS Etonogestrel-Ethinyl Estradiol (NUVARING) 0.12-0.015 mg/24 hr vaginal ring Insert vaginally and leave in place for 3 consecutive weeks, then remove for 1 week. Indications: CONTRACEPTION FAMILY HISTORY Problem Relation Age of Onset Alzheimer's Disease Father Diabetes Mother Diabetes Paternal Grandmother Heart Paternal Grandfather Breast Cancer Maternal Aunt Social History Tobacco Use Smoking status: Never Smokeless tobacco: Never Substance Use Topics Alcohol use: No Drug use: No Review of Systems Constitutional: Positive for fever and malaise/fatigue. Negative for appetite change and weight loss. HENT: Positive for ear pain, rhinorrhea and sore throat. Negative for hoarse voice, postnasal drip, sneezing and trouble swallowing. Eyes: Negative for pain, discharge, redness and itching. Respiratory: Negative for cough, hemoptysis, sputum production, shortness of breath and wheezing. Cardiovascular: Negative for chest pain, dyspnea on exertion, palpitations, leg swelling and PND. Gastrointestinal: Negative for abdominal pain, diarrhea, heartburn, nausea and vomiting. Musculoskeletal: Positive for myalgias. Negative for arthralgias and back pain. Skin: Negative for color change, pallor, rash and wound. Allergic/Immunologic: Negative for environmental allergies, food allergies and immunocompromised state. Neurological: Positive for headaches. Hematological: Negative for adenopathy. Does not bruise/bleed easily. Psychiatric/Behavioral: Negative for agitation and behavioral problems. Objective BP 130/76 Pulse 101 Temp 36.3 ?C (97.4 ?F) Resp 17 Wt 110.7 kg (244 lb) LMP 07/18/2022 SpO2 98% BMI 43.22 kg/m? Physical Exam Vitals and nursing note reviewed. Constitutional: General: She is not in acute distress. Appearance: Normal appearance. She is normal weight. She is not ill-appearing, toxic-appearing or diaphoretic. HENT: Head: Normocephalic and atraumatic. Right Ear: Ear canal and external ear normal. Left Ear: Ear canal and external ear normal. Nose: Nose normal. No congestion or rhinorrhea. Mouth/Throat: Mouth: Mucous membranes are moist. Pharynx: No oropharyngeal exudate or posterior oropharyngeal erythema. Eyes: General: Right eye: No discharge. Left eye: No discharge. Extraocular Movements: Extraocular movements intact. Conjunctiva/sclera: Conjunctivae normal. Pupils: Pupils are equal, round, and reactive to light. Cardiovascular: Rate and Rhythm: Normal rate and regular rhythm. Pulses: Normal pulses. Heart sounds: Normal heart sounds. No murmur heard. No friction rub. Pulmonary: Effort: Pulmonary effort is normal. No respiratory distress. Breath sounds: Normal breath sounds. No stridor. No wheezing, rhonchi or rales. Chest: Chest wall: No tenderness. Abdominal: General: Abdomen is flat. There is no distension. Palpations: Abdomen is soft. There is no mass. Tenderness: There is no abdominal tenderness. There is no right CVA tenderness, left CVA tenderness, guarding or rebound. Hernia: No hernia is present. Musculoskeletal: General: No swelling, tenderness, def (more content not included)... [facility] Instructions 08-14-2022 Patient Instructions Note Date & Type Note Facility 08-14-2022 Instructions Jazzy Dao APRN.APPLIED MARINE PHYSICS PROFESSOR - 08/14/2022 9:07 AM EST RESPIRATORY INFECTION GENERAL INFORMATION: An upper respiratory tract infection, or cold, is a viral infection of the airway passages. It can be caused by any one of almost 200 different viruses. Common symptoms include a runny or stuffy nose, sneezing, watery eyes, sore throat, cough, and slight fever. Colds are contagious, especially during the first 3 or 4 days and cannot be cured by antibiotics. They are spread by coughs, sneezes, and direct contact, especially [id number]. A respiratory tract infection usually clears up in a few days, but some people may be sick for a week or two. INSTRUCTIONS: 1. Be careful not to blow your nose too hard because this may cause a nosebleed. 2. Use a cool-mist humidifier (vaporizer) to increase air moisture. This will make it easier for you to breathe. Do not use hot steam. 3. Rest as much as possible and get plenty of sleep. 4. Wash your hands often, especially after you blow your nose. Cover your mouth and nose with a tissue when you sneeze or cough. 5. Drink plenty of clear fluids (8 glasses a day) such as water, fruit juice, tea, clear soups, and carbonated beverages. CONTACT YOUR DOCTOR IF : 1. Your fever lasts more than 3 days. 2. You have a sore throat that gets worse or you see white or yellow spots in your throat. 3. Your cough gets worse or lasts more than 10 days. 4. You develop a rash anywhere on your skin. 5. You have an earache or a headache. 6. You have thick greenish or yellowish discharge from your nose. RETURN IMMEDIATELY IF: 1. You cough up thick yellow, green, eli, or bloody sputum. 2. You have difficulty breathing, pain in your chest, or your skin or nails look eli or blue. 3. You have shaking chills or a temperature over 102 F (39 C). documented in this encounter [facility] History of Present illness Narrative 08-14-2022 Jazzy Dao APRN.CNP - 08/14/2022 8:48 AM EST Note Date & Type Note Facility 08-14-2022 History of Presen t illness Narrative This note was created using [employer]. Subjective Mirian Rebolledo is a 36 year old female. 36 year old female with PMH PCOS presents for illness. Acute onset 4 days ago +fever +chills +sore throat +ear pain (bilateral, left greater than right) +body aches +fatigue Denies cough Denies SOB or dyspnea. Denies N/V/D Home COVID test negative. Endorses family members have recently been ill. The history is provided by the patient. No computer language coder was used. URI There is no chest tightness, cough, difficulty breathing, frequent throat clearing, hemoptysis, hoarse voice, shortness of breath, sputum production or wheezing. This is a new problem. The current episode started in the past 7 days. The problem occurs constantly. The problem has been unchanged. Associated symptoms include ear pain, a fever, headaches, malaise/fatigue, myalgias, nasal congestion, rhinorrhea and a sore throat. Pertinent negatives include no appetite change, chest pain, dyspnea on exertion, ear congestion, heartburn, orthopnea, PND, postnasal drip, sneezing, sweats, trouble swallowing or weight loss. Her symptoms are aggravated by nothing. Her symptoms are alleviated by nothing. She reports no improvement on treatment. There are no known risk factors for lung disease. There is no history of asthma, bronchiectasis, bronchitis, COPD, emphysema or pneumonia. PAST MEDICAL HISTORY Diagnosis Date Oligomenorrhea 10/30/2011 PCOS (polycystic ovarian syndrome) 07/21/2012 PAST SURGICAL HISTORY Procedure Laterality Date APPENDECTOMY ALLERGIES Patient has no known allergies. MEDICATIONS Etonogestrel-Ethinyl Estradiol (NUVARING) 0.12-0.015 mg/24 hr vaginal ring Insert vaginally and leave in place for 3 consecutive weeks, then remove for 1 week. Indications: CONTRACEPTION FAMILY HISTORY Problem Relation Age of Onset Alzheimer's Disease Father Diabetes Mother Diabetes Paternal Grandmother Heart Paternal Grandfather Breast Cancer Maternal Aunt Social History Tobacco Use Smoking status: Never Smokeless tobacco: Never Substance Use Topics Alcohol use: No Drug use: No Review of Systems Constitutional: Positive for fever and malaise/fatigue. Negative for appetite change and weight loss. HENT: Positive for ear pain, rhinorrhea and sore throat. Negative for hoarse voice, postnasal drip, sneezing and trouble swallowing. Eyes: Negative for pain, discharge, redness and itching. Respiratory: Negative for cough, hemoptysis, sputum production, shortness of breath and wheezing. Cardiovascular: Negative for chest pain, dyspnea on exertion, palpitations, leg swelling and PND. Gastrointestinal: Negative for abdominal pain, diarrhea, heartburn, nausea and vomiting. Musculoskeletal: Positive for myalgias. Negative for arthralgias and back pain. Skin: Negative for color change, pallor, rash and wound. Allergic/Immunologic: Negative for environmental allergies, food allergies and immunocompromised state. Neurological: Positive for headaches. Hematological: Negative for adenopathy. Does not bruise/bleed easily. Psychiatric/Behavioral: Negative for agitation and behavioral problems. Objective BP 130/76 Pulse 101 Temp 36.3 C (97.4 F) Resp 17 Wt 110.7 kg (244 lb) LMP 07/18/2022 SpO2 98% BMI 43.22 kg/m Physical Exam Vitals and nursing note reviewed. Constitutional: General: She is not in acute distress. Appearance: Normal appearance. She is normal weight. She is not ill-appearing, toxic-appearing or diaphoretic. HENT: Head: Normocephalic and atraumatic. Right Ear: Ear canal and external ear normal. Left Ear: Ear canal and external ear normal. Nose: Nose normal. No congestion or rhinorrhea. Mouth/Throat: Mouth: Mucous membranes are moist. Pharynx: No oropharyngeal exudate or posterior oropharyngeal erythema. Eyes: General: Right eye: No discharge. Left eye: No discharge. Extraocular Movements: Extraocular movements intact. Conjunctiva/sclera: Conjunctivae normal. Pupils: Pupils are equal, round, and reactive to light. Cardiovascular: Rate and Rhythm: Normal rate and regular rhythm. Pulses: Normal pulses. Heart sounds: Normal heart sounds. No murmur heard. No friction rub. Pulmonary: Effort: Pulmonary effort is normal. No respiratory distress. Breath sounds: Normal breath sounds. No stridor. No wheezing, rhonchi or rales. Chest: Chest wall: No tenderness. Abdominal: General: Abdomen is flat. There is no distension. Palpations: Abdomen is soft. There is no mass. Tenderness: There is no abdominal tenderness. There is no right CVA tenderness, left CVA tenderness, guarding or rebound. Hernia: No hernia is present. Musculoskeletal: General: No swelling, tenderness, deformity or signs of injury. Normal range of motion. Cervical back: Normal range of motion and neck supple. No rigidity. Right lower leg: No edema. Left lower leg: No edema. Lymphadenopathy: Cervical: No cervical adenopathy. Skin: General: Skin is warm and dry. Capillary Refill: Capillary refill takes less than 2 seconds. Coloration: Skin is not jaundiced or pale. Findings: No bruising, erythema, lesion or rash. Neurological: General: No focal deficit present. Mental Status: She is alert and oriented to person, place, and time. Cranial Nerves: No cranial nerve deficit. Sensory: No sensory deficit. Motor: No weakness. Coordination: Coordination normal. Gait: Gait normal. Psychiatric: Mood and Affect: Mood normal. Behavior: Behavior normal. Thought Content: Thought content normal. Judgment: Judgment normal. Assessment and Plan ASSESSMENT/PLAN: 1. Pharyngitis, unspecified etiology - ICD9: 462, ICD10: J02.9 (primary diagnosis) - suspect viral - Alere Strep Test NEGATIVE, no culture pending - Discussed supportive care treatment with fluids, rest and analgesia. - The patient may also use OTC cough and cold meds as needed. - Contagious dz precautions discussed- including considered contagious until on antibiotics for 24 hours - The patient should follow up in 3-5 days if symptoms persist or worsen - Call back if drooling, increased temperature, symptoms of dehydration and/or still sick in one week - STREP A MOLECULAR (POC) - COVID WITH FLUA+B, ROUTINE 2. URI, acute - ICD9: 465.9, ICD10: J06.9 - Discussed viral etiology and rationale for treatment. - Symptomatic treatment with prn analgesia - Supportive care with fluids and rest - COVID WITH FLUA+B, ROUTINE Jazzy Dao APRN.APPLIED [employer]INE [employer] PROFESSOR documented in this encounter [facility] History of Past illness Narrative 10-30-2011 Note Date & Type Note Facility documented as of this encounter (statuses as of 08/14/2022) [facility] History of Past illness Narrative 10-30-2011 Note Date & Type Note Facility documented as of this encounter (statuses as of 07/27/2023) [facility] Evaluation note Note Date & Type Note Facility documented in this encounter [facility] Evaluation note Note Date & Type Note Facility documented in this encounter [facility] Health Concerns Infection Onset Date Last Indicated Resolved Time COVID-19 Rule-Out 08/14/2022 08/14/2022 Summary Purpose Family History No Family History Records Found Advance Directives No Advanced Directives Records Found Additional Source Comments Source Comments (unrecognize d section and content) In the event this informatio n is protected by the Federal Confidentiality of Alcohol and Drug Abuse Patient Records regulations: The Federal rules restrict any use of the information to criminally investigate or prosecute any alcohol or drug abuse patient.[facility] event this information is protected by the Federal Confidentiality of Alcohol and Drug Abuse Patient Records regulations: The Federal rules restrict any use of the information to criminally investigate or prosecute any alcohol or drug abuse patient.[facility] Reason for Visit (unrecogniz ed section and content) Reason Comments Sore Throat Cough, fever, GUZMÁN, martha dy aches x 2 days INFORMATION SOURCE (unrecogn ized section and content) FOR RECORDS PERTAINING TO PATIENTS WHO ARE OR HAVE BEEN ENROLLED IN A CHEMICAL DEPENDENCY/SUBSTANCEABUSE PROGRAM, SOME INFORMATION MAY BE OMITTED. This clinical summary was aggregated from multiple sources. Caution should be exercised in using it in the provision of clinical care. This summary normalizes information from multiple sources, and as a consequence, information in this document may materially change the coding, format and clinical context of patient data. In addition, data may be omitted in some cases. CLINICAL DECISIONS SHOULD BE BASED ON THE PRIMARY CLINICAL RECORDS. [facility]. provides no warranty or guarantee of the accuracy or completeness of information in this document.
[2023-10-28 12:39] LABS: Absolute Lymphocyte Count 2.48 X10^3/uL (0.83-4.51); Basophil# 0.04 X10^3/uL; Basophil% 0.6 % (0-1); Eosinophil# 0.14 X10^3/uL; Hematocrit 40.2 % (37-47); Hemoglobin 12.8 g/dL (12.0-15.0); Lymphocyte # 2.48 X10^3/ul (0.83-4.51); Lymphocyte % 35.7 % (19-41); Mean Corp Hgb Conc 31.8 g/dL (32-36); Mean Corpuscular Volume 94.4 fL (81-99); Mean Platelet Vol. 10.6 fl (6.2-12.0); Monocyte# 0.32 X10^3/uL; Monocyte% 4.6 % (0-10); NRBC Flagged by Analyzer 0 % (0-5); Neutrophil # 3.95 X10^3/uL (2.7-7.7); Neutrophil % 56.8 % (47-70); Platelet Count 268 K/mm3 (150-450); RBC Distribution Width CV 13.2 % (11.6-14.6); RBC Distribution Width SD 45.5 fl (35.1-43.9); Red Blood Count 4.26 M/mm3 (4.2-5.4)
[2023-10-28 13:51] LABS: ALB/GLOB Ratio 0.9 RATIO (0.9-2.4); AST(SGOT) 28 U/L (15-37); Alanine Aminotransfer ALT/SGPT 23 U/L (13-56); Albumin, Serum 3.4 g/dL (3.2-5.0); Alkaline Phosphatase 35 U/L (45-117); Anion Gap 4 (5-15); BUN 16 mg/dL (7-18); BUN/Creat Ratio 23.3 RATIO (10-20); Calcium,Total 8.7 mg/dL (8.5-10.1); Chloride 107 mmol/L (98-107); Cholesterol 129 mg/dL (200); Creatinine, Serum 0.69 mg/dL (0.55-1.02); EST Glomerular Filtration Rate 102 mL/min (>60); Est Glom Filt Rate - Afr Amer 123 mL/min (>60); Globulin 3.6 g/dL (2.2-4.2); Glucose 85 mg/dL (74-106); High Density Lipoprotein 50 mg/dL; Sodium Level 138 mmol/L (136-145); Thyroid Stim Hormone (TSH) 1.56 uIU/mL (0.358-3.74); Triglycerides 34 mg/dL; Very Low Density Lipoprotein 7 mg/dL (5-40)
[2023-10-28 14:29] LABS: Hemoglobin A1c 4.8 % (3.8-5.6)
[2023-10-31 21:07] LABS: QNTFERON TB Mitogen Value > 10.00 IU/mL (.); QNTFERON TB Nil Value 0 IU/mL (.); QNTFERON TB1+ Ag Value 0.04 IU/mL (.); QNTFERON TB2+ Ag Value 0.02 IU/mL (.); QNTIFERON TB Positive Criteria Negative (Negative)
== END | disposition home or self-care (01) ==
LOC: BIMLAB 08:05
PROVIDERS: PCP Nurse Practitioner; Referring Provider Nurse Practitioner; Visit Provider Nurse Practitioner
DX: Z02.1 Encounter for pre-employment examination (principal); E78.2 Mixed hyperlipidemia; L65.9 Nonscarring hair loss, unspecified; Z76.89 Persons encountering health services in other specified circumstances
CPT/HCPCS: 36415; 80053; 80061; 83036; 84443; 85025; 86480

== ENCOUNTER → 2023-12-22 | Outpatient (CLI) | payer OTHER, SELFPAY ==
[2023-12-22 11:55] LABS: Absolute Lymphocyte Count 1.28 X10^3/uL (0.83-4.51); Absolute Neutrophil Count 3.7 X10^3/uL (2.0-7.7); Basophil# 0.06 X10^3/uL; Basophil% 1.1 % (0-1); Eosinophil# 0.12 X10^3/uL; Eosinophils% 2.2 % (0-5); Hematocrit 36.3 % (37-47); Hemoglobin 11.5 g/dL (12.0-15.0); Lymphocyte # 1.28 X10^3/ul (0.83-4.51); Lymphocyte % 23.5 % (19-41); Mean Corp Hgb Conc 31.7 g/dL (32-36); Mean Corpuscular Hgb 28.9 pg (27.0-32.0); Mean Corpuscular Volume 91.2 fL (81-99); Mean Platelet Vol. 10.1 fl (6.2-12.0); Monocyte# 0.27 X10^3/uL; NRBC Flagged by Analyzer 0 % (0-5); Neutrophil # 3.71 X10^3/uL (2.7-7.7); Platelet Count 275 K/mm3 (150-450); RBC Distribution Width CV 12.2 % (11.6-14.6); RBC Distribution Width SD 41.1 fl (35.1-43.9); Red Blood Count 3.98 M/mm3 (4.2-5.4); White Blood Count 5.5 K/mm3 (4.4-11.0)
[2023-12-22 12:06] LABS: Erythrocyte Sedimentation Rate 4 mm/hr (0-30)
[2023-12-22 12:51] LABS: ALB/GLOB Ratio 0.9 RATIO (0.9-2.4); AST(SGOT) 23 U/L (15-37); Alanine Aminotransfer ALT/SGPT 22 U/L (13-56); Albumin, Serum 3.5 g/dL (3.2-5.0); Alkaline Phosphatase 35 U/L (45-117); Anion Gap 7 (5-15); BUN 10 mg/dL (7-18); CRP < 2.90 mg/L (0.0-3.0); Calcium,Total 8.6 mg/dL (8.5-10.1); Chloride 105 mmol/L (98-107); Creatinine, Serum 0.77 mg/dL (0.55-1.02); EST Glomerular Filtration Rate 89 mL/min (>60); Est Glom Filt Rate - Afr Amer 108 mL/min (>60); Glucose 90 mg/dL (74-106); Protein, Total 7.5 g/dL (6.4-8.2); Rheumatoid Factor < 10.0 IU/mL (<15); Sodium Level 138 mmol/L (136-145)
[2023-12-22 12:57] LABS: Internal QC Validated? YES +Cl - CLEAR BKGD; Monotest Negative (Negative); Record Kit Lot#, Mono 13231163
[2023-12-23 06:09] LABS: CMV Acute Antibody IgM < 30.0 AU/mL (0.0-29.9)
[2023-12-23 12:09] LABS: Anti-Centromere B Ab <0.2 AI (0.0-0.9); Anti-Chromatin <0.2 AI (0.0-0.9); Anti-Jo <0.2 AI (0.0-0.9); Anti-Scleroderma-70 AB <0.2 AI (0.0-0.9); Anti-dsDNA Ab 3 IU/mL (0-9); RNP Ab <0.2 AI (0.0-0.9); SJOGREN'S Anti-SS-A test < 0.2 AI (0.0-0.9); SJOGREN'S Anti-SS-B test < 0.2 AI (0.0-0.9); Smith Ab <0.2 AI (0.0-0.9)
[2023-12-24 07:08] LABS: Dilute Prothrombin Time (dPT) 40.6 sec (0.0-47.6); Dilute Russell Viper Venom 34.5 sec (0.0-47.0); Hexagonal Phase Phospholipid 2 7 sec (0-11); Interpretation Comment: (.); PTT-LA Mix 46.3 sec (0.0-40.5); Thrombin Time 17.1 sec (0.0-23.0)
== END | disposition home or self-care (01) ==
LOC: BIMLAB 09:32
PROVIDERS: PCP Nurse Practitioner; Visit Provider Nurse Practitioner
DX: M25.471 Effusion, right ankle (principal); M25.472 Effusion, left ankle; M79.89 Other specified soft tissue disorders; M79.10 Myalgia, unspecified site
CPT/HCPCS: 36415; 80053; 84550; 85025; 85652; 86140; 86225; 86235; 86308; 86431; 86645